=== PATIENT | male | born 1960 | race Caucasian/White ===

== ENCOUNTER 2017-03-24 14:44 | Day surgery (SDC) | payer BC ==
[~2017-03-24] VITALS: Ht 175.3 cm; Wt 115.4 kg
[2017-03-24 15:07] VITALS: BP 143/104; PULSE 90; TEMP 98.9
[2017-03-24] MEDS ORDERED: GLUCOPHAGE500 MG/TAB PO (15:24)
[2017-03-24] MEDS ORDERED: ASPIRIN E.C. 8181 MG PO (15:24)
[2017-03-24] MEDS ORDERED: HYGROTON 2525 MG/TAB PO (15:25)
[2017-03-24] MEDS ORDERED: ZOCOR 10MG10 MG PO (15:25)
[2017-03-24] MEDS ORDERED: VITAMIN D1000 IU PO (15:26)
[2017-03-24] MEDS ORDERED: OMEGA-3 FISH1000 MG PO (15:26)
[2017-03-24] MEDS ORDERED: ALTACE 10MG TAB10 MG PO (15:26)
[2017-03-24 16:28] VITALS: BP 149/103; PULSE 107; TEMP 98.4
[2017-03-24 16:30] VITALS: BP 139/89; PULSE 104
[2017-03-24 16:45] VITALS: BP 131/82; PULSE 88
[2017-03-24 17:03] VITALS: BP 127/95; PULSE 95
== END 2017-03-24 17:13 | disposition home or self-care (01) ==
LOC: SDCO 14:44
DX: Z12.11 Encounter for screening for malignant neoplasm of colon (principal); D12.5 Benign neoplasm of sigmoid colon; K57.30 Diverticulosis of large intestine without perforation or abscess without bleeding; I10 Essential (primary) hypertension; R73.03 Prediabetes; E78.5 Hyperlipidemia, unspecified; Z79.84 Long term (current) use of oral hypoglycemic drugs; Z79.82 Long term (current) use of aspirin; Z79.899 Other long term (current) drug therapy
CPT/HCPCS: OP; J2250; J3010; J7030

== ENCOUNTER → 2021-05-14 | Outpatient (CLI) | payer BC ==
[~2021-05-14] MED LIST: ALTACE 10MG TAB10 MG PO; ASPIRIN E.C. 8181 MG PO; GLUCOPHAGE500 MG/TAB PO; HYGROTON 2525 MG/TAB PO; OMEGA-3 FISH1000 MG PO; VITAMIN D1000 IU PO; ZOCOR 10MG10 MG PO
== END ==
LOC: COL.RAD 10:45
DX: M54.2 Cervicalgia (principal)
CPT/HCPCS: Q9967